=== PATIENT | female | born 1940 | race Caucasian/White ===

== ENCOUNTER 2016-09-26 09:52 | Inpatient (IN) | payer MEDICARE, BC ==
[~2016-09-26 09:52] MED LIST: AMITRIPTYLINE H75 M1 PO; ARICEPT10 M2 PO; CALCIUM 500 +1 EAC9 PO; CELEBREX100 M1 PO; CENTRUM SILVER1 EAC3 PO; CILOXAN EACH EYE; COLACE100 M1 PO; CYMBALTA60 M1 PO; FLONASE ALLERG9.9 ML; GLUCOSAMINE CH PO; HYDROCODON-ACE1 EA16 PO; LATANOPROST2.5 M1 RIGHT EYE; LEVOTHYROXINE200 MC4 PO; LUTEIN20 M2 PO; LYRICA150 MG/CAP PO; MILK OF MAGNESIA PO; MIRALAX17 G2 PO; NEXIUM40 M1 PO; PLAQUENIL200 M1 PO; PRAVASTATIN SOD20 M1 PO; PREDNISONE5 M1 PO; SULFAZINE500 M1 PO; SYSTANE BALANCE10 M1 EACH EYE; TOBRADEX EYE DRO5 M1 LEFT EYE; VESICARE5 M1 PO; VITAMIN D31000 UNI4 PO; VITAMIN E400 UNI6 PO; WELCHOL625 M1 PO; [UNRECOGNIZED DRUG - OTHER] MC
[2016-09-27 06:08] LABS: BASO % 0.6 % (0-2); EOS % 1.2 % (0-7); EOSINOPHIL ABSOLUTE COUNT 0.1 tho/cmm (0.0-0.7); HCT-HEMATOCRIT 36.9 % (34.0-49.0); HGB-HEMOGLOBIN 11.7 gm/dl (12.0-15.5); IMMATURE GRANULOCYTES ABSOLUTE 0.01 tho/cmm (0-0.03); IMMATURE GRANULOCYTES PERCENT 0.1 % (0-0.3); LYMPH % 15.4 % (20-45); MCH (MEAN CORPUSCULAR HGB) 30.7 pg (28.0-32.0); MCHC MEAN CORPUSCULAR HGB CONC 31.7 % (32.0-36.0); MCV (MEAN CELL VOLUME) 96.9 fl (82.0-96.0); MEAN PLATELET VOLUME 10.4 cmc (9.4-12.4); MONO % 11.7 % (0-12); MONOCYTE ABSOLUTE COUNT 0.8 tho/cmm (0.0-1.2); NEUTROPHIL ABSOLUTE COUNT 4.7 tho/cmm (1.6-8.0); NEUTROPHIL-AUTOMATED 4.7 tho/cmm (1.6-8.0); PLATELET COUNT 135 tho/cmm (150-450); RED BLOOD COUNT 3.81 mil/cmm (4.00-5.20); RED CELL DISTRIBUTION WIDTH 15.5 % (12.4-16.4); WHITE BLOOD COUNT 6.7 tho/cmm (4.0-10.0)
[2016-09-30] MEDS ORDERED: ABACAVIR300 M1 (08:44)
[2016-09-30] MEDS ORDERED: CYCLOBENZAPRINE5 M1 PO (08:44)
[2017-02-08] MEDS ORDERED: ASPIRIN EC81 MG PO (11:56)
[2017-02-08] MEDS ORDERED: LUTEIN20 M2 PO (11:57)
[2017-02-08] MEDS ORDERED: CENTRUM SILVER1 EAC3 PO (11:57)
[2017-02-08] MEDS ORDERED: MYRBETRIQ50 M1 PO (12:11)
[2017-02-08] MEDS ORDERED: GLUCOSAMINE CH1 EAC8 PO (12:11)
[2017-02-08] MEDS ORDERED: VITAMIN E400 UNI4 PO (12:12)
[2017-02-08] MEDS ORDERED: VITAMIN D1000 UNI2 PO (12:12)
[2017-02-09] MEDS ORDERED: OXYCODONE HCL5 M1 PO (09:33)
[2017-02-09] MEDS ORDERED: SENOKOT-S TABL1 EACH PO (14:18)
== END 2016-09-30 10:16 | DRG 460 ==
LOC: SHSB 09:52 → ORE 13:57 → PACU 18:23 → 5EB 19:30
PROVIDERS: ADMIT Orthopaedic Surgery
PROC: 0SG30AJ Fusion of Lumbosacral Joint with Interbody Fusion Device, Posterior Approach, Anterior Column, Open Approach (ICD-10-PCS; principal; 2016-09-26)
PROC: 3E0F7GC Introduction of Other Therapeutic Substance into Respiratory Tract, Via Natural or Artificial Opening (ICD-10-PCS; principal; 2016-09-26)
DX: M47.896 Other spondylosis, lumbar region (principal)
CPT/HCPCS: C9399; J0131; J0690; J1170; J1720; J3010; J7030; J7512

== ENCOUNTER 2017-02-10 06:38 | Inpatient (IN) | payer MEDICARE, BC ==
[~2017-02-10 06:38] MED LIST changes: +ABACAVIR300 M1; +ASPIRIN EC81 MG PO; +CYCLOBENZAPRINE5 M1 PO; +GLUCOSAMINE CH1 EAC8 PO; +MYRBETRIQ50 M1 PO; +OXYCODONE HCL5 M1 PO; +SENOKOT-S TABL1 EACH PO; +VITAMIN D1000 UNI2 PO; +VITAMIN E400 UNI4 PO
[2017-02-10] MEDS ORDERED: CYCLOBENZAPRINE5 M1 PO (14:12)
[2017-02-10] MEDS ORDERED: NORCO 5-325 TA1 EACH PO (14:14)
[2017-02-12 06:55] LABS: PLATELET COUNT 154 tho/cmm (150-450)
[2017-02-14 06:41] LABS: HGB-HEMOGLOBIN 9.7 gm/dl (12.0-15.5); PLATELET COUNT 205 tho/cmm (150-450)
[2017-02-14] MEDS ORDERED: PERCOCET 5-3251 EACH PO (14:23)
== END 2017-02-14 14:15 | DRG 460 ==
LOC: SHSB 06:38 → ORE 09:04 → PACU 11:45 → 5EB 13:25
PROVIDERS: ADMIT Orthopaedic Surgery
PROC: 0SG30A0 Fusion of Lumbosacral Joint with Interbody Fusion Device, Anterior Approach, Anterior Column, Open Approach (ICD-10-PCS; principal; 2017-02-10)
PROC: 0SP30AZ Removal of Interbody Fusion Device from Lumbosacral Joint, Open Approach (ICD-10-PCS; 2017-02-10)
PROC: 06B Lower Veins, Excision (ICD-10-PCS; 2017-02-10)
PROC: 06B Lower Veins, Excision (ICD-10-PCS; 2017-02-10)
DX: M96.0 Pseudarthrosis after fusion or arthrodesis (principal); M32.9 Systemic lupus erythematosus, unspecified; M51.27 Other intervertebral disc displacement, lumbosacral region; M54.42 Lumbago with sciatica, left side; Z85.3 Personal history of malignant neoplasm of breast; Z85.850 Personal history of malignant neoplasm of thyroid
CPT/HCPCS: A4306; G8978-GP-CK; G8979-GP-CJ; J0690; J1170; J1650; J3010; J7512